=== PATIENT | female | born 1985 | race Caucasian/White ===

== ENCOUNTER 2018-11-20 16:40 | Emergency (ER) | payer MEDICAID, SELFPAY ==
[2018-11-20 16:41] VITALS: PULSE 110; RESP 18; TEMP 36.6; O2SAT 95
--- NOTE | 2018-11-20 16:58 | ED.VISSUMM ---
- ER Visit Summary Date of Service: 11/20/18 Chief Complaint: Runny nose and generalized illness History of Present Illness: The patient is a 33 F severely mentally retarded and unable to speak which is her baseline. For the last month the patient's been staying with her grandmother who is here with her today. Patient's mother is currently in a senior care. Grandmother states that she has been ill for about a week. And seems to be getting worse. She did receive a IM Kenalog shot this past week at Dr. Loaiza's office. Also recently an allergy shot. No known fever. She has vomited x1. No diarrhea. Physical Examination: Severely mentally retarded female vital signs are stable. She does not look septic or toxic. Pupils are round reactive to light. There is some drainage from both eyes. She has clear nasal drainage. Mucous membranes are unremarkable. Not dry. Neck is nontender. No lymphadenopathy. No meningismus. Lungs clear to auscultation bilaterally. Heart tachycardic rate about 110. No murmur. Abdomen is soft. Nontender. Nondistended. Normal bowel sounds. No peritoneal signs. No hernias or masses. No signs of obstruction. Patient is moving all 4 extremities. Calves are nontender without edema. Skin without rashes. Neurologically she is awake. She will open her eyes. She follows limited to no commands. She does not speak. Test Results: CBC normal white count of 6. Hemoglobin of 12. Electrolytes normal. Gap of 10. Creatinine 0.5. UA even though was a cath specimen was contaminated with 10-25 to cells 25-50 whites but no reds no bacteria no nitrates. Chest x-ray two-view showed no acute abnormality read both by myself and the radiologist. Emergency Department Course and Treatment: Treated with 1 L normal saline IV. Patient doing well on repeat exam at 1907 p.m. in 1950. I discussed all test results with her grandmother. Treatment Plan: Discharged to home. Plenty of fluids and rest. Follow-up with her doctor if not improving. Disposition: Discharge Impression: Acute viral syndrome History of severe mental retardation This note was generated with [employer] software. It may contain incorrect words, spelling, and punctuation that were not noted in review of the chart prior to signing ED Disposition - Plan for ED Patient: Disposition: Home or Assisted Living Chief Complaint: General Illness Instructions: ED Viral Syndrome Referrals: [facility] Doctor,Out of [NON-STAFF] - 3-5 Days if not improving Additional Instructions: Plenty of fluids and rest. Follow-up with not improving. At this time her labs are unremarkable. This seems to be due to a viral illness.
--- NOTE | 2018-11-20 17:01 | ED.DCSUM_ITS ---
- ER Visit Summary Date of Service: 11/20/18 Chief Complaint: Runny nose and generalized illness History of Present Illness: The patient is a 33 F severely mentally retarded and unable to speak which is her baseline. For the last month the patient's been staying with her grandmother who is here with her today. Patient's mother is currently in a fpc. Grandmother states that she has been ill for about a week. And seems to be getting worse. She did receive a IM Kenalog shot this past week at Dr. Loaiza's office. Also recently an allergy shot. No known fever. She has vomited x1. No diarrhea. Physical Examination: Severely mentally retarded female vital signs are stable. She does not look septic or toxic. Pupils are round reactive to light. There is some drainage from both eyes. She has clear nasal drainage. Mucous membranes are unremarkable. Not dry. Neck is nontender. No lymphadenopathy. No meningismus. Lungs clear to auscultation bilaterally. Heart tachycardic rate about 110. No murmur. Abdomen is soft. Nontender. Nondistended. Normal bowel sounds. No peritoneal signs. No hernias or masses. No signs of obstruction. Patient is moving all 4 extremities. Calves are nontender without edema. Skin without rashes. Neurologically she is awake. She will open her eyes. She follows limited to no commands. She does not speak. Test Results: CBC normal white count of 6. Hemoglobin of 12. Electrolytes normal. Gap of 10. Creatinine 0.5. UA even though was a cath specimen was contaminated with 10-25 to cells 25-50 whites but no reds no bacteria no nitrates. Chest x-ray two-view showed no acute abnormality read both by myself and the radiologist. Emergency Department Course and Treatment: Treated with 1 L normal saline IV. Patient doing well on repeat exam at 1907 p.m. in 1950. I discussed all test results with her grandmother. Treatment Plan: Discharged to home. Plenty of fluids and rest. Follow-up with her doctor if not improving. Disposition: Discharge Impression: Acute viral syndrome History of severe mental retardation This note was generated with [employer]ation software. It may contain incorrect words, spelling, and punctuation that were not noted in review of the chart prior to signing ED Disposition - Plan for ED Patient: Disposition: Home or Assisted Living Chief Complaint: General Illness Instructions: ED Viral Syndrome Referrals: [facility] Doctor,Out of [NON-STAFF] - 3-5 Days if not improving Additional Instructions: Plenty of fluids and rest. Follow-up with not improving. At this time her labs are unremarkable. This seems to be due to a viral illness.
[2018-11-20] MEDS: 0.9% Normal Saline 1,000 ML 1000 ML IV (17:13)
[2018-11-20 17:15] VITALS: BP 141/88; PULSE 111; RESP 16; RESP 18; TEMP 37.5; O2SAT 97
[2018-11-20 17:16] LABS: Absolute Lymphocyte Count 0.91 X10^3/ul (0.83-4.51); Absolute Neutrophil Count 5.1 X10^3/uL (2.0-7.7); Basophil# 0.01 X10^3/uL; Basophil% 0.2 % (0-1); Eosinophil# 0.09 X10^3/uL; Eosinophils% 1.4 % (0-5); Hematocrit 39.5 % (37-47); Hemoglobin 12.9 g/dl (12.0-15.0); Lymphocyte # 0.91 X10^3/ul (4.0); Lymphocyte % 13.9 % (19-41); Mean Corp Hgb Conc 32.7 g/gl (32-36); Mean Corpuscular Hgb 28.6 pg (27.0-32.0); Mean Corpuscular Volume 87.6 fL (81-99); Mean Platelet Vol. 9.9 fl (6.2-12.0); Monocyte# 0.39 X10^3/uL; Neutrophil # 5.12 X10^3/uL (2.7-7.7); Neutrophil % 78.2 % (47-70); Platelet Count 380 K/mm3 (150-450); RBC Distribution Width CV 14.5 % (11.6-14.6); RBC Distribution Width SD 46.7 fl (35.1-43.9); Red Blood Count 4.51 M/mm3 (4.2-5.4); White Blood Count 6.5 K/mm3 (4.4-11.0)
[2018-11-20 17:24] LABS: POSITIVE COUNT NO; POSITIVE DIFFERENTIAL NO; POSITIVE MORPHOLOGY NO
[2018-11-20 17:49] LABS: Anion Gap 10 (5-15); BUN 9 mg/dL (7-18); BUN/Creat Ratio 17.9 RATIO (10-20); Calcium,Total 9.3 mg/dL (8.5-10.1); Chloride 106 mmol/L (98-107); EST Glomerular Filtration Rate 148 mL/min (>60); Est Glom Filt Rate - Afr Amer 179 mL/min (>60); Glucose 87 mg/dL (74-106); Potassium 3.8 mmol/L (3.5-5.1); Sodium Level 140 mmol/L (136-145)
[2018-11-20 18:04] VITALS: PULSE 106; RESP 16; TEMP 37.4; O2SAT 97
--- NOTE | 2018-11-20 18:14 | RAD_ITS ---
STUDY: X-RAY CHEST REASON FOR EXAM: Female, 33 years old. Cough and congestion. TECHNIQUE: Frontal and lateral views of the chest. COMPARISON: None. FINDINGS: The lungs are clear and expanded. There is no demonstrated pleural abnormality. Normal size heart. Normal mediastinum and gary. Normal visualized pulmonary arteries. Normal visualized aortic arch and descending thoracic aorta. Normal visualized thoracic spine. Normal visualized ribs, clavicles, and shoulders. There is no demonstrated abnormality of the visualized soft tissue structures of the upper abdomen. RAD/Chest PA and Lateral IMPRESSION: Normal x-ray examination of the chest. Electronically Signed: Dewayne Tyson MD at 18:50 EST , Service support ,
[2018-11-20 18:57] LABS: Bacteria 0 SEEN /hpf (None Seen); Mucous, Urine 0 SEEN /hpf (<or=2+); Red Blood Cells-Urine 0 SEEN /hpf (0-5)
[2018-11-20 19:18] VITALS: BP 136/88; PULSE 88; RESP 16; TEMP 37.1; O2SAT 100; O2SAT 98
[2018-11-20 19:41] LABS: Color, Urine Yellow (Yellow); Glucose, Dipstick Normal (Normal); Leukocyte Esterase-Dipstick 500 /ul (Negative); Nitrite-Dipstick Negative (Negative); Occult Blood-Urine 50 /ul (Negative); Protein-Dipstick 15 mg/dl (Negative); Specific Gravity, Urine 1.015 (1.002-1.030); Urine Bilirubin Dipstick Negative (Negative); Urine Clarity Cloudy (Clear); Urine Urobilinogen 1 mg/dl (Normal)
--- NOTE | 2018-11-20 19:42 | ED.DEP ---
ED Disposition - Plan for ED Patient: Disposition: Home or Assisted Living Chief Complaint: General Illness Instructions: ED Viral Syndrome Referrals: [facility],Out of [NON-STAFF] - 3-5 Days if not improving Additional Instructions: Plenty of fluids and rest. Follow-up with not improving. At this time her labs are unremarkable. This seems to be due to a viral illness.
[2018-11-20 19:44] LABS: White Blood Cells 25-50 SEEN /hpf (0-5)
[2018-11-20 19:46] LABS: Ketone-Dipstick 150 mg/dl (Negative)
--- NOTE | 2018-11-20 19:46 | ED.RN ---
LAB CALLED TO REPORT URINE KETONE OF 150. DR. PADILLA AND PRIMARY NURSE MADE AWARE.
[2018-11-20 19:47] LABS: Squamous Epithelial Cells - UA 10-25 SEEN /hpf (5-10)
[2018-11-20 20:00] VITALS: BP 136/88; PULSE 88; RESP 15; O2SAT 100
== END 2018-11-20 20:01 | disposition home or self-care (01) ==
PROVIDERS: Emergency Provider Emergency Medicine
DX: B34.9 Viral infection, unspecified (principal); F72 Severe intellectual disabilities
CPT/HCPCS: 71046; 80048; 81001; 85025; 96360; 96361; 99284; J7030; P9612; A4216